=== PATIENT | female | born 1995 | race Caucasian/White ===

== ENCOUNTER 2018-07-18 20:14 | Inpatient (IN) | payer OTHER ==
[2018-07-18] MEDS ORDERED: LACTATED RINGER'S 1,000 ML IV (21:13)
[2018-07-18] MEDS ORDERED: METHYLERGONOVINE 0.2 MG INJ IM (21:30)
[2018-07-18] MEDS ORDERED: BUTORPHANOL 2 MG INJ IV (21:30)
[2018-07-18] MEDS ORDERED: LIDOCAINE 1% (MPF) 30 ML INJ INJ (21:30)
[2018-07-18] MEDS ORDERED: OXYTOCIN 30 UNITS/LR 500 ML IV ×2 (21:30)
[2018-07-18] MEDS ORDERED: CARBOPROST 250 MCG INJ IM (21:30)
[2018-07-18] MEDS ORDERED: MISOPROSTOL 200 MCG TAB PR (21:30)
[2018-07-18] MEDS: LACTATED RINGER'S 1,000 ML IV* (21:57)
[2018-07-18] MEDS: AMPICILLIN 2 GM/NS (PMX) 100 ML IV ×2 (21:57→22:00)
[2018-07-18 22:21] LABS: ADD MAN DIFF? NO
[2018-07-18 22:25] LABS: BASOPHILS % 0.3 % (0.0-2.0); EOSINOPHILS # 0.1 10^3/ul (0.0-0.5); HEMATOCRIT 32.2 % (37.0-47.0); LYMPHOCYTES # 1.8 10^3/ul (0.8-2.9); LYMPHOCYTES % 20.9 % (15.0-51.0); MEAN CORPUSCULAR HEMOGLOBIN 24.1 pg (29.0-33.0); MEAN CORPUSCULAR HGB CONC 31.1 g/dl (32.0-37.0); MEAN CORPUSCULAR VOLUME 77.6 fl (82.0-101.0); MEAN PLATELET VOLUME 11.6 fl (7.4-10.4); MONOCYTE # 0.7 10^3/ul (0.3-0.9); MONOCYTES % 8.5 % (0.0-11.0); PLATELET COUNT 198 10^3/UL (140-415); RED BLOOD COUNT 4.15 10^6/ul (4.20-5.40); RED CELL DISTRIBUTION WIDTH 15.4 % (11.5-14.5)
[2018-07-18 22:25] LABS: WHITE BLOOD COUNT 8.7 10^3/ul (4.8-10.8)
[2018-07-18 22:48] LABS: INR 0.87; PROTIME 11.9 Sec (11.9-14.9); PT RATIO 0.9
[2018-07-18 22:55] LABS: ADD UMIC YES; UR ASCORBIC ACID NEGATIVE (NEGATIVE); UR BACTERIA FEW /HPF (NONE SEEN); UR BILIRUBIN (Dip) NEGATIVE (NEGATIVE); UR BLOOD (Dip) NEGATIVE (NEGATIVE); UR CLARITY SLIGHTLY CLOUDY (CLEAR); UR COLOR YELLOW (YELLOW); UR GLUCOSE (Dip) NEGATIVE (NEGATIVE); UR KETONES (Dip) NEGATIVE (NEGATIVE); UR LEUKOCYTE ESTERASE (Dip) 2+ Leu/ul (NEGATIVE); UR NITRITE (Dip) NEGATIVE (NEGATIVE); UR RBC 1 /HPF (0-5); UR SPECIFIC GRAVITY (Dip) 1.019 (1.003-1.030); UR SQUAMOUS EPITHELIAL CELL MODERATE /HPF (FEW); UR TOTAL PROTEIN (Dip) NEGATIVE (NEGATIVE); UR UROBILINOGEN (Dip) NEGATIVE (NEGATIVE); UR WBC 5 /HPF (0-5)
[2018-07-18 22:56] LABS: PARTIAL THROMBOPLASTIN TIME 26.2 Sec (25.0-35.0)
[2018-07-18 22:59] LABS: AMPHETAMINE/METHAMPHETAMINE Negative (NEGATIVE); BARBITURATES Negative (NEGATIVE); BENZODIAZEPINES Negative (NEGATIVE); CANNABINOIDS Negative (NEGATIVE); COCAINE Negative (NEGATIVE); OPIATES Negative (NEGATIVE)
[2018-07-18 23:22] LABS: HEPATITIS B SURFACE ANTIGEN NEGATIVE (NEGATIVE)
[2018-07-18 23:32] LABS: HIV 1&2 ANTIBODY NEGATIVE (NEGATIVE)
[2018-07-19] MEDS: OXYTOCIN 30 UNITS/LR 500 ML IV ×3 (00:11→09:29)
[2018-07-19] MEDS ORDERED: FENTAnyl 2MCG/ML-ROPIV 0.2% 100 ML (00:27)
[2018-07-19] MEDS: LACTATED RINGER'S 1,000 ML IV* ×2 (00:52→12:44)
[2018-07-19] MEDS ORDERED: NALOXONE (0.4 MG/ML) INJ IV (01:00)
[2018-07-19] MEDS: FENTAnyl 2MCG/ML-ROPIV 0.2% 100 ML BAG EPI (01:35)
[2018-07-19] MEDS: AMPICILLIN 1 GM/NS (PMX) 50 ML IV ×2 (01:44→12:44)
[2018-07-19] MEDS ORDERED: ACETAMINOPHEN 325 MG TAB PO ×2 (06:00)
[2018-07-19] MEDS ORDERED: OXYTOCIN 30 UNITS/LR 500 ML IV (06:00)
[2018-07-19] MEDS ORDERED: MISOPROSTOL 200 MCG TAB PR (06:00)
[2018-07-19] MEDS ORDERED: CARBOPROST 250 MCG INJ IM (06:00)
[2018-07-19] MEDS ORDERED: ONDANSETRON 4 MG INJ IV (06:00)
[2018-07-19] MEDS ORDERED: DIBUCAINE 1% 30 GM OINT PR (06:00)
[2018-07-19] MEDS ORDERED: MAGNESIUM HYDROXIDE 30ML CUP PO (06:00)
[2018-07-19] MEDS ORDERED: METHYLERGONOVINE 0.2 MG INJ IM (06:00)
[2018-07-19] MEDS: BENZOCAINE 20% 56 ML SPRAY TOP (10:21)
[2018-07-19] MEDS: WITCH HAZEL/GLYCERIN PAD PR (10:21)
[2018-07-19] MEDS: IBUPROFEN 600 MG TAB PO ×3 (10:21→23:40)
[2018-07-19] MEDS: LANOLIN 7 GM TUBE TOP (17:34)
[2018-07-19 19:38] LABS: RAPID PLASMA REAGIN NONREACTIVE (NR)
[2018-07-19] MEDS: SENNA/DOCUSATE NA (8.6MG/50MG) TAB PO (21:15)
[2018-07-20] MEDS: IBUPROFEN 600 MG TAB PO (05:38)
[2018-07-20 08:57] LABS: ADD MAN DIFF? NO
[2018-07-20 09:04] LABS: WHITE BLOOD COUNT 7.6 10^3/ul (4.8-10.8)
[2018-07-20 09:04] LABS: BASOPHILS % 0.4 % (0.0-2.0); EOSINOPHILS # 0.2 10^3/ul (0.0-0.5); HEMATOCRIT 29.4 % (37.0-47.0); LYMPHOCYTES # 2.4 10^3/ul (0.8-2.9); LYMPHOCYTES % 30.9 % (15.0-51.0); MEAN CORPUSCULAR HEMOGLOBIN 24.3 pg (29.0-33.0); MEAN CORPUSCULAR HGB CONC 30.6 g/dl (32.0-37.0); MEAN CORPUSCULAR VOLUME 79.5 fl (82.0-101.0); MEAN PLATELET VOLUME 11.8 fl (7.4-10.4); MONOCYTE # 0.6 10^3/ul (0.3-0.9); MONOCYTES % 7.5 % (0.0-11.0); NEUTROPHIL # 4.5 10^3/ul (1.6-7.5); NEUTROPHILS % 58.5 % (39.0-77.0); PLATELET COUNT 160 10^3/UL (140-415); RED CELL DISTRIBUTION WIDTH 15.7 % (11.5-14.5)
[2018-07-20 12:41] LABS: RUBELLA ANTIBODY - IGG 2.18 index; RUBELLA ANTIBODY - IGM <20.00 AU/mL
[2018-07-21] MEDS: IBUPROFEN 600 MG TAB PO (00:23)
== END 2018-07-21 13:05 | disposition home or self-care (01) | DRG 775 ==
LOC: OBT 20:14 → PP1 07-19 07:55 → L-D 20:16 → OBT 22:04 → L-D 22:05
PROC: 10E0XZZ Delivery of Products of Conception, External Approach (ICD-10-PCS; principal; 2018-07-19)
DX: O80 Encounter for full-term uncomplicated delivery (principal); Z3A.39 39 weeks gestation of pregnancy; Z37.0 Single live birth
CPT/HCPCS: 62319; 76815; 76818; 80307; 81001; 85025; 85610; 85730; 86592; 86703; 86762; 86850; 86900; 86901; 87340